=== PATIENT | female | born 1940 | race Hispanic/Latino ===

== ENCOUNTER 2017-11-25 09:16 | Day surgery (SDC) | payer MEDICARE, OTHER ==
[2017-11-25 10:56] VITALS: BMI 29.6
[2017-11-25] MEDS ORDERED: Lactated Ringer's 500 ML IV ONE (10:59)
[2017-11-25 11:18] VITALS: TEMP 96.8
[2017-11-25] MEDS ORDERED: Propofol 10 mg/ml Inj (20 ML) ONE (11:34)
[2017-11-25 12:01] VITALS: PULSE 44; RESP 16; O2SAT 100
[2017-11-25 12:03] VITALS: BP 129/70
== END 2017-11-25 14:39 | disposition home or self-care (01) ==
LOC: H.ENDO 09:16
PROVIDERS: ATTEND Internal Medicine Gastroenterology
DX: R12 Heartburn (principal); K44.9 Diaphragmatic hernia without obstruction or gangrene; K31.9 Disease of stomach and duodenum, unspecified; K21.9 Gastro-esophageal reflux disease without esophagitis
CPT/HCPCS: 43239; 88305; J2001; J2704; J7120